=== PATIENT | male | born 1950 | race Caucasian/White ===

== ENCOUNTER 2020-01-08 01:28 | Emergency (ER) | payer MEDICARE, SELFPAY ==
[2020-01-08 01:34] VITALS: BP 117/79; PULSE 53; RESP 18; TEMP 36.6; O2SAT 98; BMI 35.2
--- NOTE | 2020-01-08 01:52 | XR_ITS ---
WS: [id number] PORTABLE CHEST HISTORY: syncope COMPARISON: None available. Hyperexpanded lungs. Coarse interstitial thickening over both lungs. Most diffuse involvement through out the RIGHT lung. No pleural effusion or pneumothorax. Cardiac size: Normal. Mediastinum/Aorta: Normal mediastinum. Severe degenerative changes at the LEFT humeral head. Probably from old fracture with healing. XR/XR chest 1V portable [id number] IMPRESSION: Diffuse coarse interstitial markings throughout the lungs. Most typical for pul monary fibrosis. Superimposed pneumonia could be present or edema. With no prio r studies for comparison interval change is difficult to evaluate.
--- NOTE | 2020-01-08 01:52 | ECG_ITS ---
[facility] Test Date: 2020-01-08 Pat Name: Brendon Feliciano Department: Room: Gender: Male Data Analyst: : 1950 Requested By: Ronnie Hood Order Number: [id number] Soliz MD: María Trejo M.D. Measurements Intervals [place] Rate: 49 P: 17 MN: 272 QRS: -29 QRSD: 98 T: 6 QT: 468 QTc: 423 Interpretive Statements SINUS BRADYCARDIA WITH FIRST DEGREE AV BLOCK BORDERLINE LEFT AXIS DEVIATION [QRS AXIS < -20] No previous ECG available for comparison Electronically Signed On 01-08-2020 18:29:44 CDT by María Trejo M.D. [id number]
--- NOTE | 2020-01-08 01:53 | ED_ITS ---
HPI - General Adult General: Chief complaint: General Medical Stated complaint: hypoglycemia Time Seen by Provider: 01/08/20 01:34 History of Present Illness: HPI narrative: 69-year-old male presenting via ambulance. He woke up this morning extremely sweaty, feeling very lethargic and weak, and had decreased mental status. He denied any chest pain. Ambulance was called, and a blood sugar of 51 was found. The patient was given oral glucose with increase in his blood glucose level on the way here to the 60s. He feels much better. He now complains of some mild chest discomfort. His mental status is essentially back to baseline. He denies any fevers, other recent illness. Onset (ago): minute(s) Radiation: non-radiation Severity: moderate Quality: other Relieving factors: other (Glucose) Associated symptoms: Reports chest pain and nausea; Deny dyspnea, headache(s), rash, palpitations or vomiting Review of Systems Const: Denies: fever(s) or chills Eyes: Denies: change in vision or blurry vision ENMT: Denies: swelling of lips/tongue or bleeding gums Card: Reports: chest pain and edema; Denies: palpitations, irregular heart rhythm or orthopnea Resp: Denies: dyspnea, productive cough, non-productive cough or wheezing GI: Reports: nausea; Denies: abdominal pain or vomiting : Denies: dysuria or hematuria Musc: Reports: back pain; Denies: neck pain or joint redness Skin/Breast: Denies: rash or erythema Neuro: Reports: dizziness; Denies: headache(s) or vertigo Psych: Denies: anxiety PFSH ED PFSH: Social History Smoking and tobacco status: current every day smoker Physical Exam Const: GENERAL APPEARANCE: well developed ORIENTATION/CONSCIOUSNESS: Yes oriented to person, Yes oriented to place and Yes oriented to time HENMT: COMMON NORMALS: normocephalic, external ears normal and Normal external nose present HEAD & SCALP: normocephalic FACE & SINUS: normal facial exam NOSE: Normal external nose present and No nasal discharge present EXTERNAL EAR: Yes external ears normal MOUTH: tongue normal Eye: COMMON NORMALS: Equal, round and reactive pupils present, EOMs intact bilaterally and conjunctivae normal EYELID: eyelids normal CONJUNCTIVA: Yes conjunctivae normal PUPIL: Yes Equal, round and reactive pupils present Neck/C-Spine: GENERAL: No tracheal deviation Chest: COMMONS NORMALS: normal inspection of the chest CHEST: No tenderness Resp: COMMON NORMALS: clear to auscultation bilaterally EFFORT & INSPECTION: No tachypneic, No respiratory distress, No retractions, No uses accessory muscles and No tracheal deviation AUSCULTATION: clear to auscultation bilaterally, no rhonchi, no wheezes and lung sounds not diminished Cardio: COMMON NORMALS: regular rate and regular rhythm RATE: regular rate RHYTHM: regular rhythm HEART SOUNDS: no murmurs PERIPHERAL PULSES: radial pulses present GI: INSPECTION: No abdominal distension AUSCULTATION: No Hyperactive bowel sounds present and No Hypoactive bowel sounds present PALPATION: No Guarding due to palpation present (GI) and No Rigid due to palpation PERCUSSION: no dullness to percussion and no tympanic to percussion Neuro: SENSORIUM/ORIENTATION: Yes oriented to person, Yes oriented to place and Yes oriented to time Psych: COMMON NORMALS: mental status grossly normal Skin: COMMON NORMALS: no rashes or lesions noted GENERAL SKIN EXAM: no rashes or lesions noted Course Vital Signs: Vital signs: Vital Signs Temperature 97.8 F 01/08/20 01:34 Pulse Rate 53 L 01/08/20 04:06 Respiratory Rate 19 H 01/08/20 04:06 Blood Pressure 133/75 01/08/20 04:06 Pulse Oximetry 95 01/08/20 04:06 MDM - General Adult MDM Narrative: Medical decision making narrative: 69-year-old male with hypoglycemia. He is on glipizide. Hemoglobin 15.5. No leukocytosis. His platelet count is low. He does have a history of prostate cancer. Other laboratory benign, his sugar was 53 in the field by serum testing, it is up significantly currently. His first troponin was not elevated. His EKG did not show acute ST changes. His chest x-ray however shows bilateral interstitial infiltrates. He is not febrile. He is not had a cough. He does have a history of heart disease. His troponin at 2 hours remains negative. His EKG still shows sinus rhythm with a first-degree AV block and no acute ST change. He will be allowed discharge. On his discharge, his sugar is back down to 66, he is given one half amp of D50. He is told to check his blood sugar in 2 hours, and hold his glipizide today. Lab Data: Labs: Lab Results 01/08/20 01/08/20 01/08/20 Range/Units 00:20 00:20 00:20 WBC 6.8 (4.0-10.0) 10^3/ uL RBC 4.52 (4.1-5.3) 10^6/u L Hgb 15.5 (11.7-16.6) g/dL Hct 47.4 (42.0-52.0) % MCV 104.9 H (80-94) fL MCH 34.3 H (28.0-34.0) pg MCHC 32.7 (30.0-36.0) g/dL RDW 15.3 H (12.1-15.1) % Plt Count 78 L (130-400) 10^3/c mm MPV 11.2 H (7.4-10.4) fL Neut % (Auto) 51.2 % Lymph % (Auto) 36.4 % [place] % (Auto) 8.0 % Eos % (Auto) 3.4 % Baso % (Auto) 0.7 % Neut # (Auto) 3.5 (1.8-7.7) 10^3/u L Lymph # (Auto) 2.5 (0.8-4.8) 10^3/u L [place] # (Auto) 0.5 (0.2-0.9) 10^3/u L Eos # (Auto) 0.2 (0.0-0.8) 10^3/u L Baso # (Auto) 0.1 (0.0-0.1) 10^3/u L Nucleated RBC % (a uto) 0 % Nucleated RBCs # 0.0 /100WBC Sodium 142 (136-145) mmol/L Potassium 4.4 (3.5-5.1) mmol/L Chloride 106 (98-107) mmol/L Carbon Dioxide 27 (22-29) mmol/L Anion Gap 13.4 (5-19) BUN 15 (8-23) mg/dL Creatinine 0.9 (0.7-1.2) mg/dL GFR Calculation 83.4 L (90-130) mL/min Glucose 53 L (65-115) mg/dL POC Glucose (70-110) mg/dL Calculated Osmolal ity 288 (285-295) mOsm/k g Calcium 8.6 (8.5-10.5) mg/dL Total Bilirubin 0.6 (0.15-1.2) mg/dL AST 31 (0-40) U/L ALT 14 (0-41) U/L Alkaline Phosphata se 106 (40-130) IU/L Troponin T Baselin e 10 (0-15) ng/L Troponin T 120 Min [place] (0-15) ng/L Delta Troponin T (0-10) ABS# NT-Pro-B Natriuret Pep (0-125) pg/mL Total Protein 7.4 (6.6-8.7) g/dL Albumin 3.5 (3.5-5.2) g/dL Globulin 3.9 (1.3-4.6) g/dL 01/08/20 01/08/20 01/08/20 Range/Units 00:20 02:13 03:30 WBC (4.0-10.0) 10^3/ uL RBC (4.1-5.3) 10^6/u L Hgb (11.7-16.6) g/dL Hct (42.0-52.0) % MCV (80-94) fL MCH (28.0-34.0) pg MCHC (30.0-36.0) g/dL RDW (12.1-15.1) % Plt Count (130-400) 10^3/c mm MPV (7.4-10.4) fL Neut % (Auto) % Lymph % (Auto) % [place] % (Auto) % Eos % (Auto) % Baso % (Auto) % Neut # (Auto) (1.8-7.7) 10^3/u L Lymph # (Auto) (0.8-4.8) 10^3/u L [place] # (Auto) (0.2-0.9) 10^3/u L Eos # (Auto) (0.0-0.8) 10^3/u L Baso # (Auto) (0.0-0.1) 10^3/u L Nucleated RBC % (a uto) % Nucleated RBCs # /100WBC Sodium (136-145) mmol/L Potassium (3.5-5.1) mmol/L Chloride (98-107) mmol/L Carbon Dioxide (22-29) mmol/L Anion Gap (5-19) BUN (8-23) mg/dL Creatinine (0.7-1.2) mg/dL GFR Calculation (90-130) mL/min Glucose (65-115) mg/dL POC Glucose 82 (70-110) mg/dL Calculated Osmolal ity (285-295) mOsm/k g Calcium (8.5-10.5) mg/dL Total Bilirubin (0.15-1.2) mg/dL AST (0-40) U/L ALT (0-41) U/L Alkaline Phosphata se (40-130) IU/L Troponin T Baselin e (0-15) ng/L Troponin T 120 Min [place] 8.97 (0-15) ng/L Delta Troponin T -1.03 L (0-10) ABS# NT-Pro-B Natriuret Pep 120 (0-125) pg/mL Total Protein (6.6-8.7) g/dL Albumin (3.5-5.2) g/dL Globulin (1.3-4.6) g/dL 01/08/20 Range/Units 04:15 WBC (4.0-10.0) 10^3/ uL RBC (4.1-5.3) 10^6/u L Hgb (11.7-16.6) g/dL Hct (42.0-52.0) % MCV (80-94) fL MCH (28.0-34.0) pg MCHC (30.0-36.0) g/dL RDW (12.1-15.1) % Plt Count (130-400) 10^3/c mm MPV (7.4-10.4) fL Neut % (Auto) % Lymph % (Auto) % [place] % (Auto) % Eos % (Auto) % Baso % (Auto) % Neut # (Auto) (1.8-7.7) 10^3/u L Lymph # (Auto) (0.8-4.8) 10^3/u L [place] # (Auto) (0.2-0.9) 10^3/u L Eos # (Auto) (0.0-0.8) 10^3/u L Baso # (Auto) (0.0-0.1) 10^3/u L Nucleated RBC % (a uto) % Nucleated RBCs # /100WBC Sodium (136-145) mmol/L Potassium (3.5-5.1) mmol/L Chloride (98-107) mmol/L Carbon Dioxide (22-29) mmol/L Anion Gap (5-19) BUN (8-23) mg/dL Creatinine (0.7-1.2) mg/dL GFR Calculation (90-130) mL/min Glucose (65-115) mg/dL POC Glucose 66 (70-110) mg/dL Calculated Osmolal ity (285-295) mOsm/k g Calcium (8.5-10.5) mg/dL Total Bilirubin (0.15-1.2) mg/dL AST (0-40) U/L ALT (0-41) U/L Alkaline Phosphata se (40-130) IU/L Troponin T Baselin e (0-15) ng/L Troponin T 120 Min [place] (0-15) ng/L Delta Troponin T (0-10) ABS# NT-Pro-B Natriuret Pep (0-125) pg/mL Total Protein (6.6-8.7) g/dL Albumin (3.5-5.2) g/dL Globulin (1.3-4.6) g/dL Discharge Plan Discharge Patient Disposition: Home, Self-Care Clinical Impression: Hypoglycemia associated with diabetes Condition: Stable Prescriptions: No Action Lasix 80 mg Tablet 80 mg PO DAILY RF: 0 glipizide 10 mg Tablet 20 mg PO DAILY RF: 0 phenytoin sodium extended 100 mg Capsule 100 mg PO TID RF: 0 hydrocodone-acetaminophen 10-325 mg Tablet 1 tab PO Q6H PRN (Reason: Pain) RF: 0 gemfibrozil 600 mg Tablet 600 mg PO BID RF: 0 ropinirole 0.5 mg Tablet 0.5 mg PO DAILY RF: 0 B Complex-Vitamin B12 Tablet 1 tab PO DAILY RF: 0 propranolol 20 mg Tablet 20 mg PO BID RF: 0 potassium chloride 20 mEq Tablet Extended Release 20 meq PO BID RF: 0 Discharge Orders: Discharge Order (Routine); Ordered 01/08/20 Ordered By: Ronnie Rosales Discharge Diet: Usual diet Discharge Activity: Increase activity as tolerated Patient Instructions: Diabetic Hypoglycemia (ED) Activity Restrictions/Additional Instructions: Check your blood sugar in 2 hours time, to ensure it is staying up. Hold your glipizide today if your sugar increases, you may restart tomorrow. Return for repeated episodes of syncope or passing out, weakness, chest discomfort, other concerning symptoms. 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
[2020-01-08 02:14] VITALS: BP 140/74; PULSE 50; RESP 19; O2SAT 99
[2020-01-08 02:16] LABS: Alanine Aminotransferase 14 U/L (0-41); Albumin Level 3.5 g/dL (3.5-5.2); Alkaline Phosphatase 106 IU/L (40-130); Anion Gap 13.4 (5-19); Aspartate Amino Transferase 31 U/L (0-40); Blood Urea Nitrogen 15 mg/dL (8-23); Calcium 8.6 mg/dL (8.5-10.5); Carbon Dioxide 27 mmol/L (22-29); Chloride 106 mmol/L (98-107); Globulin 3.9 g/dL (1.3-4.6); Glomerular Filtration Rate 83.4 mL/min (90-130); Glucose 53 mg/dL (65-115); Osmolality Calculated 288 mOsm/kg (285-295); Potassium 4.4 mmol/L (3.5-5.1); Sodium 142 mmol/L (136-145); Total Bilirubin 0.6 mg/dL (0.15-1.2); Total Protein 7.4 g/dL (6.6-8.7); Troponin(5th) Baseline 10 ng/L (0-15)
[2020-01-08 02:18] LABS: Glucose Point of Care 82 mg/dL (70-110)
[2020-01-08 02:24] LABS: Basophils # 0.1 10^3/uL (0.0-0.1); Basophils % 0.7 %; Eosinophils # 0.2 10^3/uL (0.0-0.8); Eosinophils % 3.4 %; Hematocrit 47.4 % (42.0-52.0); Hemoglobin 15.5 g/dL (11.7-16.6); Lymphocytes # 2.5 10^3/uL (0.8-4.8); Lymphocytes % 36.4 %; Mean Corpuscular HGB Conc 32.7 g/dL (30.0-36.0); Mean Corpuscular Hemoglobin 34.3 pg (28.0-34.0); Mean Corpuscular Volume 104.9 fL (80-94); Mean Platelet Volume 11.2 fL (7.4-10.4); Monocytes # 0.5 10^3/uL (0.2-0.9); Neutrophils # 3.5 10^3/uL (1.8-7.7); Neutrophils % 51.2 %; Nucleated Red Blood Cells % 0 %; Platelet Count 78 10^3/cmm (130-400); Red Blood Count 4.52 10^6/uL (4.1-5.3); Red Cell Distribution Width 15.3 % (12.1-15.1); White Blood Count 6.8 10^3/uL (4.0-10.0)
[2020-01-08 02:39] LABS: NT Pro B Type Natriuretic Pept 120 pg/mL (0-125)
[2020-01-08 02:50] VITALS: BP 129/72; RESP 17; O2SAT 97
[2020-01-08 03:00] VITALS: BP 131/73; PULSE 58; RESP 18; O2SAT 97
--- NOTE | 2020-01-08 03:52 | ECG_ITS ---
[facility] Test Date: 2020-01-08 Pat Name: Brendon Feliciano Department: Room: Gender: Male Communications Writer: : 1950 Requested By: Ronnie Hood Order Number: [id number] Martínez MD: María Trejo M.D. Measurements Intervals [place] Rate: 50 P: -2 [place]: 249 QRS: -29 QRSD: 96 T: 12 QT: 472 QTc: 433 Interpretive Statements SINUS BRADYCARDIA WITH FIRST DEGREE AV BLOCK BORDERLINE LEFT AXIS DEVIATION [QRS AXIS < -20] Compared to ECG 01/08/2020 01:43:48 No significant changes Electronically Signed On 01-08-2020 18:38:43 CDT by María Trejo M.D. [id number]
[2020-01-08 03:54] LABS: Troponin 5 2HR 8.97 ng/L (0-15)
[2020-01-08 03:56] LABS: Troponin 5 2HR Delta -1.03 ABS# (0-10)
[2020-01-08 04:06] VITALS: BP 133/75; PULSE 53; RESP 19; O2SAT 95
[2020-01-08 04:19] LABS: Glucose Point of Care 66 mg/dL (70-110)
[2020-01-08] MEDS: dextrose 50% syringe 50 mL 25 ML IVP (04:22)
[2020-01-08 05:19] VITALS: BP 152/80; PULSE 68; RESP 17; O2SAT 95
== END 2020-01-08 05:21 | disposition home or self-care (01) ==
PROVIDERS: Emergency Provider Emergency Medicine
DX: E11.649 Type 2 diabetes mellitus with hypoglycemia without coma (principal); Z79.84 Long term (current) use of oral hypoglycemic drugs; F17.210 Nicotine dependence, cigarettes, uncomplicated; R07.9 Chest pain, unspecified
CPT/HCPCS: 12345; 36416; 71045; 80053; 82962; 83880; 84484; 85025; 93005; 96374; 99283; 99284